=== PATIENT | male | born 1960 | race Caucasian/White ===

== ENCOUNTER → 2019-06-24 | Day surgery (SDC) | payer BC ==
[~2019-06-24] MED LIST: CARVEDILOL12.5 MG PO; COQ-1030 MG PO; CRANBERRY200 MG PO; DICYCLOMINE HCL10 MG PO; GABAPENTIN300 MG PO; HYDROCHLOROTHIA25 MG PO; LOSARTAN POTAS100 MG PO; MAGNESIUM PO; METFORMIN HCL500 MG PO; MIDAZOLAM HCL 2 MG/2 ML VIAL ONE; MULTIPLE VITAM1 EAC1 PO; PRILOSEC OTC20 MG PO; PROPOFOL IV EMULSION 10 MG/ML 50 ML VIAL ONE; VITAMIN B 12 PO
--- OUTSIDE RECORDS SUMMARY | 2019-06-24 05:09 | XMS REPORT ---
Author Author [facility] Address Unknown Phone Unavailable Care Team Providers Care Dependency Counselor Name Role Phone Unavailable Unavailable Problems This patient has no known problems. Allergies, Adverse Reactions, Alerts This patient has no known allergies or adverse reactions. Medications This patient has no known medications. Encounters Start Date/Time End Date/Time Encounter Type Admission Type Attending [facility] Facility Care Department Encounter ID 2019-04-15 11:18:00 2019-04-15 11:18:00 Emergency E [id number]
[2019-06-24 07:41] VITALS: BP 115/78
== END | disposition home or self-care (01) ==
LOC: OR 05:00
PROVIDERS: ATTEND Internal Medicine Gastroenterology
DX: K57.32 Diverticulitis of large intestine without perforation or abscess without bleeding (principal); E66.01 Morbid (severe) obesity due to excess calories; Z68.42 Body mass index [BMI] 45.0-49.9, adult; Z71.3 Dietary counseling and surveillance; Z91.041 Radiographic dye allergy status; Z01.810 Encounter for preprocedural cardiovascular examination; K21.9 Gastro-esophageal reflux disease without esophagitis; E11.9 Type 2 diabetes mellitus without complications; I10 Essential (primary) hypertension; K63.5 Polyp of colon; K57.30 Diverticulosis of large intestine without perforation or abscess without bleeding; K64.8 Other hemorrhoids; Z79.84 Long term (current) use of oral hypoglycemic drugs; D12.2 Benign neoplasm of ascending colon
CPT/HCPCS: 45380; 93005; J2250; J2704; 45384